=== PATIENT | female | born 1975 | race Hispanic/Latino ===

== ENCOUNTER → 2016-08-25 | Day surgery (SDC) | payer OTHER ==
[~2016-08-25] VITALS: Ht 152.4 cm; Wt 58.5 kg
[~2016-08-25] MED LIST: ACET1TAB12 PO; BECL8.7A6 INHALATION; CALC-952 PO; CHOL400T3 PO; DOXY100C2 PO; FLUT16SP NS; LEVO250T45 PO; OMEP20CA11 PO; ONDA8TAB10 PO; PANT40TA3 PO; RIZA10TA28 PO; ROB500 PO; Sodium Chloride LOK Flush 10 mL Syringe IV PRN; fentaNYL-PF 50 mCg/mL 2 mL Inj IVPUSH PRN
[2016-08-25 14:12] VITALS: BP 110/69; PULSE 66; RESP 16; O2SAT 99
[2016-08-25] MEDS: 0.9% Sodium Chloride 1,000 ML IV SCH ×2 (15:20→16:02)
[2016-08-25 16:05] VITALS: BP 119/63; PULSE 66; RESP 16; O2SAT 98
[2016-08-25 16:15] VITALS: BP 102/59; PULSE 61; RESP 16; O2SAT 98
[2016-08-25 16:25] VITALS: BP 97/60; PULSE 74; RESP 16; O2SAT 100
[2016-08-25 16:35] VITALS: BP 106/75; PULSE 67; RESP 16; O2SAT 100
--- NOTE | 2016-08-25 19:00 | ENDO ---
[address] [address] ENDOSCOPY PROCEDURE PATIENT: ANNE-MARIE URIAS : 1975 MR#: [id number] ADMIT: 08/25/2016 JOB ID: [id number] DATE: 08/25/2016 PRIMARY PROVIDER: Lacey Faulkner DO. PROCEDURE: Esophagogastroduodenoscopy with biopsies and culture. INDICATIONS: This is a 41-year-old female with chronic intermittent frequent epigastric pain and an element of weight loss of late with possible low-grade melena of uncertain etiology. She gets quite a bit of relief from Mylanta and is dependent on twice daily pantoprazole. Recalls being treated for Helicobacter pylori three separate times. Most recent biopsies of the stomach in 2013 and 2014 were negative for H. pylori. EQUIPMENT: GIF H 180 J. SEDATION: 1. 6 mg Versed. 2. 125 mcg fentanyl. COMPLICATIONS: None identified. PROCEDURE INFORMATION: After the risks and benefits were explained, written and verbal informed consent was obtained. The patient was brought into the endoscopy suite and placed into the left lateral decubitus position. Sedation was achieved using the above-stated medications with the addition of oxygen via nasal cannula. The scope was introduced into the mouth through the bite block, and advanced under direct visualization through the oropharynx, esophagus, stomach, and onto the second portion of the duodenum. The scope was slowly withdrawn to carefully examine the mucosa for any defects or lesions. Retroflexed views were accomplished in the stomach. The stomach was decompressed. The scope removed from the patient who tolerated the procedure well. FINDINGS: 1. Duodenum: The mucosa appeared normal from the bulb through to the second portion. 2. Stomach: The patient had some linear mild erosive features in the antrum, otherwise minimal gastropathy seen throughout. No outlet obstruction. No mass lesions. No large ulcers. Random gastric biopsies were taken for exclusion of Helicobacter or any other underlying histopathology. An extra set of biopsies x4 were taken for culture. These were sent down to Micro directly from the endoscopy suite in a dry, sterile specimen container. 3. Retroflexed views of the LES were unremarkable. 4. Esophagus: The squamocolumnar junction correlated with the top of the gastric folds. No acute erosive changes. No strictures. No mass lesions. The GE junction was at 35 cm from the incisors. ENDOSCOPIC DIAGNOSIS: Erosive gastropathy. RECOMMENDATIONS: 1. Await histopathology. 2. Await Microbiology for culture and sensitivity results if H. pylori is confirmed (this step was taken in the context of the patient reporting three prior treatments for H. pylori which did not take). 3. In the interim, the patient is encouraged to continue b.i.d. PPI and p.r.n. Mylanta until we have the above data.
--- NOTE | 2016-08-27 15:00 | PATH ---
SURGICAL PATHOLOGY Attending Physician:Yanelis Luong CASE STATUS: Signed Out PATIENT NAME: ANNE-MARIE URIAS PID: [id number] : 1975 DATE COLLECTED:08/25/2016 00:00 SPECIMEN: Gastric, Biopsy CLINICAL HISTORY: 1). GASTRIC BIOPSY FINAL DIAGNOSIS: 1.GASTRIC BIOPSY: GASTRIC BODY MUCOSA WITH NO DIAGNOSTIC ALTERATIONS. Negative for Helicobacter organisms. Negative for intestinal metaplasia. Negative for dysplasia and malignancy. ICD10 code R10.13 GROSS DESCRIPTION: The specimen is received in one formalin filled container labeled with the patient's name, sublabeled "gastric" and consists of a 0.3 x 0.3 x 0.3 CM portion of tissue which is entirely submitted in one cassette. 08/26/2016 DAC MICRO DESCRIPTION: See diagnosis. ICD-9 CODES: CPT CODES: 1: 76036 Electronically Signed Out Irma Shafer MD [facility] Pathology [facility] [address], [place] [address] Technical component performed at [facility], [address] [place] [address] Ave[address], [place], [address]
== END | disposition home or self-care (01) ==
LOC: END 01:04
PROVIDERS: ATTEND Internal Medicine Gastroenterology
DX: K31.9 Disease of stomach and duodenum, unspecified (principal); K21.9 Gastro-esophageal reflux disease without esophagitis; G43.109 Migraine with aura, not intractable, without status migrainosus; K59.09 Other constipation; R63.4 Abnormal weight loss
CPT/HCPCS: 43239; 87070; 87075; 87205; G0500; J2250; J3010; J7030

== ENCOUNTER 2016-09-07 12:08 | Emergency (ER) | payer OTHER ==
[~2016-09-07] VITALS: Ht 152.4 cm; Wt 58.6 kg
[~2016-09-07 12:08] MED LIST changes: -DOXY100C2 PO; -LEVO250T45 PO; -OMEP20CA11 PO; -ONDA8TAB10 PO; -ROB500 PO; -Sodium Chloride LOK Flush 10 mL Syringe IV PRN; -fentaNYL-PF 50 mCg/mL 2 mL Inj IVPUSH PRN
[2016-09-07 12:11] VITALS: BP 114/82; PULSE 88; RESP 16; O2SAT 100
[2016-09-07] MEDS ORDERED: ROB500 PO (12:15)
--- NOTE | 2016-09-07 12:24 | ED.REPORT ---
HPI-Abd Pain F 40 and Over Date of Service Sep 07, 2016 ED Provider: Daniele Moreno MD Lynne is a 41-year-old female with a chief complaint of epigastric abdominal pain. She reports a history of abdominal pain that has been increasing over the last year. This morning it was more severe and associated with 2 episodes of nonbloody vomiting. She describes the pain as intermittent, and cannot say what provokes or palliates it. She takes pantoprazole for her heartburn as well as Tylenol with Codeine. She reports having upper endoscopy approximately 2 weeks ago. Review of records reveals it is negative for H. pylori cancer and revealed erosive esophagitis. Patient denies hematochezia, melena, diarrhea, constipation, urinary symptoms, vaginal bleeding/discharge, fever. Patient reports a history of hysterectomy and cholecystectomy. Denies history of heart disease, hypertension, hyperlipidemia, diabetes. Nursing Notes Stated Complaint: STOMACH PAIN Chief Complaint: Female Abdominal Pain Nursing Notes Reviewed: Yes Allergies: Coded Allergies: Penicillins (Verified Allergy, Severe, HIVES/RASH, 09/07/16) amoxicillin (Verified Allergy, Unknown, 09/07/16) clavulanic acid (Verified Allergy, Unknown, 09/07/16) ketorolac (Verified Allergy, Unknown, 09/07/16) promethazine (Verified Adverse Reaction, Severe, Extrapyramidal Symptoms, 09/07/16) Dystonia prochlorperazine (Verified Adverse Reaction, Intermediate, Extrapyramidal Symptoms, 09/07/16) dystonia Uncoded Allergies: Clavulanate Potassium (Allergy, Severe, HIVES, RASH, 10/23/13) Scheduled Beclomethasone Dipropionate (Qvar) 8.7 Gm Aer.w.adap 2 PUFFS INHALATION BID Fluticasone Propionate (Fluticasone Propionate Nasal) 16 Gm [place].susp 1 SPRAY NS BID Ondansetron ODT (Ondansetron ODT) 8 Mg Tab.rapdis 8 MG PO TID Pantoprazole DR (Pantoprazole DR) 40 Mg Tablet.dr 40 MG PO BID Scheduled PRN Acetaminophen/Codeine 300-30mg (Tylenol/Codeine #3) 1 Each Tablet 1 TABLET PO Q4H PRN PRN Pain Methocarbamol (Methocarbamol) 500 Mg Tablet 1 TAB PO DAILY PRN PRN For Spasm Miscellaneous Medications Calcium Carbonate/Vitamin D3 (Calcium 500 mg Chewable Tablet) 1 Each Tab.chew 1 EACH PO Cholecalciferol (Vitamin D3) (Vitamin D3) 400 Unit Tab.chew Unknown Dose PO Rizatriptan ODT (Rizatriptan) 10 Mg Tablet 10 MG PO General Time Seen by MD: 12:17 Chief Complaint Abdominal pain Hx Obtained From: Patient Arrived By: Walk-in Sudden in Onset?: No Symptom Duration: Since onset Past Medical History Past Medical History Notes: has been tested and treated 3 times for H plyoric patient states she has not provided urine to determine if she has active disease Past Medical History EDMONDS for 3-4 years Depression Past Surgical History She had a "tummy tuck" done at [place] , gallbladder removed 2 years ago 2013 Endoscopy Reports: Appendectomy, Cholecystectomy, Hysterectomy Family History Liver cancer Reports: Cancer Smoking History Never Smoker Social History Alcohol Use: "Social" Drug Use: Denies drug use Other Social History: Local resident 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 HEENT: Denies congestion, headache, sore throat. Respiratory: Denies dyspnea, cough, shortness of breath, wheezing. Cardiovascular: Denies chest pain, palpitations. Gastrointestinal: Admits vomiting, abdominal pain. Denies diarrhea, melena, hematochezia Genitourinary: Denies frequency, urgency, dysuria, hematuria. Otherwise as noted in HPI. Complete sys rev & neg: except as marked. Physical Exam General: Well appearing, well developed, well nourished, moderate distress. Head: Atraumatic, normocephalic. Eyes: No scleral icterus or injection. No discharge. Vision grossly intact. ENT: Voice clear, hearing grossly intact. Respiratory: Regular rate and rhythm. Breath sounds present, clear to auscultation and equal bilaterally. No respiratory distress. No increased work of breathing, speaks in complete sentences. Cardiovascular: Regular rate and rhythm, without murmur, gallop or rub. No pedal edema. Gastrointestinal: Abdomen flat and mildly tender over the epigastrium without guarding or rebound. Bowel sounds normoactive. Skin: Warm and dry. Neurological: Grossly nonfocal. Psychological: Alert and oriented. Speech appropriate, linear and logical. Behavior appropriate. Vital Signs Vital Signs (First) Date Time Temp Pulse Resp B/P Pulse Ox O2 Delivery O2 Flow Rate FiO2 09/07/16 12:11 36.2 88 16 114/82 100 Room Air Initial VS: Reviewed Interpretation & Diagnostics Lab Results Interpretation Result Diagram: 09/07/16 1310 09/07/16 1310 Test 09/07/16 13:10 White Blood Count 10.3th/mm3 (3.8-10.1) Red Blood Count 4.40mil/mm3 (3.90-5.20) Hemoglobin 13.7g/dL (12.0-15.6) Hematocrit 39.9% (35.0-46.0) Mean Corpuscular Volume 90.7fL (81-100) Mean Corpuscular Hemoglobin 31.1pg (27.0-35.0) Mean Corpuscular Hemoglobin Concent 34.3% (32.0-37.0) Red Cell Distribution Width 12.0% (12.3-15.4) Platelet Count 184bil/L (150-400) Neutrophils (%) (Auto) 72.1% (40-74) Lymphocytes (%) (Auto) 20.9% (14-46) Monocytes (%) (Auto) 4.9% (4-12) Eosinophils (%) (Auto) 1.6% (0-5) Basophils (%) (Auto) 0.2% (0-3) Sodium Level 138mEq/L (134-144) Potassium Level 3.7mEq/L (3.5-5.2) Chloride Level 100mEq/L (97-108) Carbon Dioxide Level 23mmol/L (18-29) Blood Urea Nitrogen 13mg/dL (6-24) Creatinine 0.54mg/dL (0.57-1.00) Estimat Glomerular Filtration Rate 178mL/min (>59) Glucose Level 97mg/dL (60-99) Calcium Level 9.7mg/dL (8.5-10.1) Total Bilirubin 1.5mg/dL (0.0-1.2) Aspartate Amino Transf (AST/SGOT) 44U/L (0-50) Alanine Aminotransferase (ALT/SGPT) 25U/L (0-32) Alkaline Phosphatase 59U/L (25-150) Total Protein 7.4g/dL (6.4-8.4) Albumin 4.5g/dL (3.4-5.0) Lipase 45U/L (13-60) Hold Villagomez Top Tube Received (Received) Re-Eval/Medical Decision Med Decision/Clinical Course Lynne is an otherwise healthy 41-year-old female presents with chief complaint epigastric pain associated with 2 episodes of nonbloody vomiting this morning. She reports a two-year history of abdominal pain for which she takes pantoprazole daily as well as Maalox. States that this pain is similar to the pain she has been treated for previously. Reports having endoscopy done approximately 2 weeks ago but she does not know the results. Physical examination reveals only very mild epigastric tenderness. Reviewed endoscopy from Dr. Mehta from 08/25/2016 shows: normal duodenum, mild erosive features in the antrum otherwise minimal gastropathy. Findings are consistent with erosive gastropathy. Pathology report: Negative Helicobacter, metaplasia, and malignancy. Treated with GI cocktail, to minimal effect. CMP reveals slightly low creatinine and slightly elevated bilirubin at 1.5. Not thought to be clinically significant. LFTs otherwise normal. CBC reveals extremely slight leukocytosis at 10.3. Not thought to be clinically significant. At this point I believe this is most likely be an aggravation of her erosive gastritis. I do not think it is likely to be a bleeding ulcer, perforation, pancreatitis, cholecystitis, diverticulitis. Advised continuing PPI, Maalox, acetaminophen for pain. Provided prescription for ondansetron. Advised Primary care follow-up, provided emergency return precautions. Discussed findings with patient who understands and agrees with the plan. Source of Hx: Old records Re-Evaluation/Progress : Re-Evaluation/Progress Note: Patient's abdominal pain continues despite GI cocktail. She reports her pain reduced from 10/10 to 9/10 Counseled Regarding: Diagnosis, Lab results Discharge & Departure Primary Impression: Erosive gastritis Disposition: Home Discharge Condition All VS Reviewed: Yes Condition: Stable Patient Instructions: Gastritis (ED) Additional Instructions: Evaluation for abdominal pain in the emergency Department. History, physical and the results of your recent upper endoscopy consistent with erosive gastritis , which is a severe irritation of your stomach lining. There is no indication of an immediately dangerous cause of her pain such as a bleeding ulcer or a perforation. I believe you are stable and safe to be discharged home. Continue taking your pantoprazole as directed. Continue using Maalox when you are symptoms are worse than usual. I will write you a prescription for anti- nausea medication. Pain is best treated with up to 1000 mg of Tylenol every 6 hours. Please contact your primary care provider to arrange follow-up in the next few days. Return to emergency room for new or worsening symptoms including bloody/ tarry stool, vomiting blood, weakness, increasing pain. Referrals: Lacey Faulkner DO (PCP) EDSupervising Provider for APC: Daniele Moreno MD Attestation Portions of this note were transcribed by Coby Pompa. I, Dr. Moreno personally performed the history, physical exam and medical decision-making; I reviewed and confirmed the accuracy of the information in the transcribed note. Signed by: Marietta Thorne, 09/07/2016 at 1230. Attending Statement Attending attestation: I saw this patient in conjunction with Dalton Brantley PA-C. I was present for all black portions of the history taking and physical examination. I agree with the workup, evaluation, treatment and disposition. Daniele Moreno MD copies to: Lacey Faulkner Beck O MD Sep 07, 2016 12:24 Coby Pompa Sep 07, 2016 12:26 Dalton Brantley PA-C Sep 07, 2016 12:52
[2016-09-07] MEDS ORDERED: LidocaineVisc 2%:Antacid 1:1 10 mL Syringe PO ONE (12:25)
[2016-09-07] MEDS ORDERED: 0.9% Sodium Chloride 1,000 ML IV ONE (13:00)
[2016-09-07] MEDS ORDERED: Ondansetron 2 mg/mL 2 mL Inj IVPUSH ONE (13:00)
[2016-09-07 13:25] LABS: BASOPHILS % (AUTO) 0.2 % (0-3); EOSINOPHILS % (AUTO) 1.6 % (0-5); MONOCYTES % (AUTO) 4.9 % (4-12); Mean Corpuscular Hemoglobin 31.1 pg (27.0-35.0); Mean Corpuscular Volume 90.7 fL (81-100); NEUTROPHILS % (AUTO) 72.1 % (40-74); Platelet Count 184 bil/L (150-400)
[2016-09-07] MEDS ORDERED: ONDA8TAB10 PO (14:05)
[2016-09-07 14:22] VITALS: BP 118/78; PULSE 75; RESP 18; O2SAT 100
== END 2016-09-07 14:05 | disposition home or self-care (01) ==
LOC: SED 12:08
DX: K29.60 Other gastritis without bleeding (principal); Z90.49 Acquired absence of other specified parts of digestive tract; Z98.890 Other specified postprocedural states; Z88.0 Allergy status to penicillin; Z88.1 Allergy status to other antibiotic agents; Z88.8 Allergy status to other drugs, medicaments and biological substances
CPT/HCPCS: 36415; 80053; 83690; 85025; 96361; 96374; 99284; J2405; J7030

== ENCOUNTER 2017-02-17 18:15 | Emergency (ER) | payer OTHER ==
[~2017-02-17] VITALS: Ht 152.4 cm; Wt 61.8 kg
[~2017-02-17 18:15] MED LIST changes: +ONDA8TAB10 PO; +ROB500 PO
[2017-02-17 18:16] VITALS: BP 132/82; PULSE 64; RESP 16; O2SAT 100
[2017-02-17] MEDS ORDERED: Ondansetron 2 mg/mL 2 mL Inj IVPUSH PRN (18:30)
--- NOTE | 2017-02-17 18:30 | ED.REPORT ---
HPI-Abd Pain F 40 and Over Date of Service Feb 17, 2017 ED Provider: Tyler Calderon MD Pt is a 41 y/o female with a history of GERD and acid reflux who presents to the ED c/o LLQ abdominal pain that radiates to her back onset 0100 this morning. Additional symptoms include melena. She denies nausea, vomiting, fevers , dysuria, diarrhea, or hematochezia. Nursing Notes Stated Complaint: ABDOMINAL PAIN Chief Complaint: Female Abdominal Pain Nursing Notes Reviewed: Yes Allergies: Coded Allergies: Penicillins (Verified Allergy, Severe, HIVES/RASH, 09/07/16) amoxicillin (Verified Allergy, Unknown, 09/07/16) clavulanic acid (Verified Allergy, Unknown, 09/07/16) ketorolac (Verified Allergy, Unknown, 09/07/16) promethazine (Verified Adverse Reaction, Severe, Extrapyramidal Symptoms, 09/07/16) Dystonia prochlorperazine (Verified Adverse Reaction, Intermediate, Extrapyramidal Symptoms, 09/07/16) dystonia Uncoded Allergies: Clavulanate Potassium (Allergy, Severe, HIVES, RASH, 10/23/13) Scheduled Beclomethasone Dipropionate (Qvar) 8.7 Gm Aer.w.adap 2 PUFFS INHALATION BID Fluticasone Propionate (Fluticasone Propionate Nasal) 16 Gm [place].susp 1 SPRAY NS BID Ondansetron ODT (Ondansetron ODT) 8 Mg Tab.rapdis 8 MG PO TID Pantoprazole DR (Pantoprazole DR) 40 Mg Tablet.dr 40 MG PO BID Scheduled PRN Acetaminophen/Codeine 300-30mg (Tylenol/Codeine #3) 1 Each Tablet 1 TABLET PO Q4H PRN PRN Pain Methocarbamol (Methocarbamol) 500 Mg Tablet 1 TAB PO DAILY PRN PRN For Spasm Miscellaneous Medications Calcium Carbonate/Vitamin D3 (Calcium 500 mg Chewable Tablet) 1 Each Tab.chew 1 EACH PO Cholecalciferol (Vitamin D3) (Vitamin D3) 400 Unit Tab.chew Unknown Dose PO Rizatriptan ODT (Rizatriptan) 10 Mg Tablet 10 MG PO General Time Seen by MD: 18:30 Chief Complaint Abdominal pain Hx Obtained From: Patient Arrived By: Walk-in Sudden in Onset?: No Onset Occurred: 9 - 12 hours ago Symptom Duration: Constant Location: : LLQ Quality: Painful Radiation: : Back Severity: Current: Mild Severity: Maximum: Moderate Recent Healthcare: No recent doctor visit, No recent hospitalization Similar Sx Previous: No Risk Factors )( AAA Risk Stratification Risk factors reviewed Past Medical History Past Medical History Notes: has been tested and treated 3 times for H plyoric patient states she has not provided urine to determine if she has active disease Past Medical History EDMONDS for 3-4 years Depression Reports: Asthma, GERD Past Surgical History She had a "tummy tuck" done at [place] , gallbladder removed 2 years ago 2013 Endoscopy Reports: Appendectomy, Cholecystectomy, Hysterectomy Family History Liver cancer Reports: Cancer Smoking History Never Smoker Social History Alcohol Use: "Social" Drug Use: Denies drug use Other Social History: Local resident 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 Physical Exam Vital Signs Vital Signs (First) Date Time Temp Pulse Resp B/P Pulse Ox O2 Delivery O2 Flow Rate FiO2 02/17/17 18:16 36.8 64 16 132/82 100 Room Air Initial VS: Reviewed Neck: Supple, Full range of motion Extremities: Vascular intact, Neuro intact, No swelling, No tenderness Skin: Warm, Dry, No cyanosis Neurologic: Alert, Oriented, Nonfocal Psychiatric: Mood/affect normal, Behavior normal, Normal thought content General/Constitutional: Awake, Alert Respiratory / Chest: Atraumatic, Breath sounds NL, Breath sounds = bilat, No respiratory distress Cardiovascular: Heart rate NL, Regular rhythm, Heart sounds NL, No gallop Abdomen: Soft, No guarding, No rebound Tenderness/Guarding/Rebound: Positive: Tender LLQ... (Mild) Back: Inspection NL, Full range of motion, No CVA tenderness Rectum / Perineum: pollution control chemist passed, No gross blood [place] negative Interpretation & Diagnostics Lab Results Interpretation Result Diagram: 02/17/17 1844 02/17/17 1844 Test 02/17/17 18:44 02/17/17 18:49 02/17/17 19:43 02/17/17 21:42 White Blood Count 6.9th/mm3 (3.8-10.1) Red Blood Count 3.76mil/mm3 (3.90-5.20) Hemoglobin 11.9g/dL (12.0-15.6) Hematocrit 35.2% (35.0-46.0) Mean Corpuscular Volume 93.6fL (81-100) Mean Corpuscular Hemoglobin 31.6pg (27.0-35.0) Mean Corpuscular Hemoglobin Concent 33.8% (32.0-37.0) Red Cell Distribution Width 12.3% (12.3-15.4) Platelet Count 169bil/L (150-400) Neutrophils (%) (Auto) 54.7% (40-74) Lymphocytes (%) (Auto) 31.3% (14-46) Monocytes (%) (Auto) 9.4% (4-12) Eosinophils (%) (Auto) 3.9% (0-5) Basophils (%) (Auto) 0.1% (0-3) Sodium Level 139mEq/L (134-144) Potassium Level 3.6mEq/L (3.5-5.2) Chloride Level 102mEq/L (97-108) Carbon Dioxide Level 25mmol/L (18-29) Blood Urea Nitrogen 16mg/dL (6-24) Creatinine 0.54mg/dL (0.57-1.00) Estimat Glomerular Filtration Rate 178mL/min (>59) Glucose Level 102mg/dL (60-99) Calcium Level 9.1mg/dL (8.5-10.1) Magnesium Level 1.9mg/dL (1.6-2.6) Total Bilirubin 0.7mg/dL (0.0-1.2) Aspartate Amino Transf (AST/SGOT) 29U/L (0-50) Alanine Aminotransferase (ALT/SGPT) 30U/L (0-32) Alkaline Phosphatase 56U/L (25-150) Total Protein 6.9g/dL (6.4-8.4) Albumin 3.9g/dL (3.4-5.0) Lipase 65U/L (13-60) Hold Villagomez Top Tube Received (Received) Urine Color Yellow (YELLOW) Urine Appearance Clear (CLEAR,HAZY) Urine pH 7.0 (5.0-8.0) Urine Specific [place] 1.015 (1.003-1.035) Urine Protein Negativemg/dL (NEG,TRACE) Urine Glucose (UA) Negativemg/dL (NEGATIVE) Urine Ketones Negativemg/dL (NEGATIVE) Urine Occult Blood Trace (NEGATIVE) Urine Nitrite Negative (NEGATIVE) Urine Bilirubin Negative (NEGATIVE) Urine Urobilinogen Normalmg/dL (NORMAL) Urine Leukocyte Esterase Negative (NEGATIVE) Urine RBC 0-2/hpf (0-2) Urine WBC 0-5/hpf (0-5) Urine Epithelial Cells Occasional/hpf (NONE-MOD) Urine Crystals Amorphous phosphates Urine Bacteria Few/hpf (NONE-FEW) Urine Hyaline Casts None/lpf (NONE) Urine Granular Casts None seen (NONE SEEN) Urine Waxy Casts None seen (NONE SEEN) Urine Red Blood Cell Casts None seen (NONE SEEN) Urine White Blood Cell Casts None seen (NONE SEEN) Urine Mucus Present (None Seen) Urine Trichomonas None seen (NONE SEEN) Urine Yeast None (NONE SEEN) Urinalysis Comment None Urine Culture Reflexed Not indicated Hold Blue Top Tube Received (Received) CT Abd / Pelvis Interpretation IMPRESSION: Prior cholecystectomy, no sign of intestinal obstruction or perforation. A source of current symptoms is not found. Dictated by: Carlitos Shaffer M.D. on 02/17/2017 at 20:58 Approved by: Carlitos Shaffer M.D. on 02/17/2017 at 20:59 Study type: Abdominal CT IV contrast Interpretation / Wet Read by: Interpret - Radiologist Re-Eval/Medical Decision Med Decision/Clinical Course 41-year-old female history of hysterectomy presenting with left lower quadrant pain. She has mild left lower quadrant tenderness. Vital signs stable. Labs are unremarkable. CT abdomen and pelvis no acute pathology. Urine is negative for infection. Her pain resolved. Unclear etiology. She will follow-up with her primary doctor tomorrow. Return precautions given. Source of Hx: Old records Re-Evaluation/Progress : Time of Eval: 21:14 Patient Status: Condition improved Re-Evaluation/Progress Note: Pt rechecked. Performed rectal exam. Pt says her pain has resolved. Discussed plan for discharge. Pt agrees and understands plan. Gave all RTER and follow-up directions. All questions addresssed at this time. Counseled Regarding: Diagnosis, Lab results, Need for follow-up, When/why to return to ED Discharge & Departure Primary Impression: Abdominal pain Abdominal location: left lower quadrant Qualified Code: R10.32 - Left lower quadrant pain Disposition: Home Discharge Condition All VS Reviewed: Yes Condition: Stable Patient Instructions: Acute Abdominal Pain (ED) Additional Instructions: Your labs are normal and your CT scan did not show any cause for concern. However given these symptoms, I believe you are able to go home. Take Tylenol for your pain as needed. Please call in the morning to schedule a follow-up appointment with your primary care doctor in 2-3 days for a recheck. Please return to the emergency department if you experience any new or worsening symptoms, including fever, nausea, vomiting, diarrhea, or blood in your stool. Referrals: Anibal Rogers DO (PCP) Scribe Attestation Portions of this note were transcribed by Lala Harris. I, Dr. Calderon, personally performed the history, physical exam and medical decision-making; I reviewed and confirmed the accuracy of the information in the transcribed note. copies to: Anibal Rogers Ben M MD Feb 17, 2017 18:30 Lala Harris Feb 17, 2017 19:09
[2017-02-17 19:02] LABS: BASOPHILS % (AUTO) 0.1 % (0-3); EOSINOPHILS % (AUTO) 3.9 % (0-5); MONOCYTES % (AUTO) 9.4 % (4-12); Mean Corpuscular Hemoglobin 31.6 pg (27.0-35.0); Mean Corpuscular Volume 93.6 fL (81-100); NEUTROPHILS % (AUTO) 54.7 % (40-74); Platelet Count 169 bil/L (150-400)
[2017-02-17 19:14] LABS: Magnesium 1.9 mg/dL (1.6-2.6)
[2017-02-17 20:04] LABS: APPEARANCE,URINE CLEAR (CLEAR,HAZY); COLOR,URINE YELLOW (YELLOW); OCCULT BLOOD,URINE TRACE (NEGATIVE); UROBILINOGEN,URINE NORMAL (NORMAL)
--- NOTE | 2017-02-17 21:00 | DRSVH ---
PROCEDURE: CT ABDOMEN AND PELVIS WITH CONTRAST ([id number]) INDICATIONS: lower abd pain TECHNIQUE: After the administration of intravenous contrast, 5 mm thick sections acquired from the diaphragm to the symphysis. 5 mm coronal and sagittal reformats were acquired. For radiation dose reduction, the following was used: automated exposure control, adjustment of mA and/or kV according to patient bárbara e. COMPARISON: [facility], CT, ABD/PELVIS W/CON (PN), 09/03/2014, 1:55. FINDINGS: Image quality: Excellent. ABDOMEN: Lung bases: Lung bases are clear. Heart size is normal. Solid organs: Liver and spleen are normal in size and enhancement. Gallbladder has been previously resected. Biliary system is non dilated. Pancreas enhances normally. No adrenal nodules. Kidneys demonstrate normal size and enhancement, without hydronephrosis. Peritoneum and bowel: Bowel loops demonstrate normal wall thickness and caliber. No free fluid or a ir. Nodes and vessels: No retroperitoneal or mesenteric adenopathy by size criteria. Aorta and inferior vena cava are normal in size. Miscellaneous: No ventral hernias. PELVIS: Genitourinary: Bladder wall thickness is normal. Miscellaneous: No inguinal hernias or adenopathy. Bones: No suspicious bony lesions. No vertebral body compression fractures. IMPRESSION: Prior cholecystectomy, no sign of intestinal obstruction or perforation. A source of cu rrent symptoms is not found. Dictated by: Carlitos Shaffer M.D. on 02/17/2017 at 20:58 Approved by: Carlitos Shaffer M.D. on 02/17/2017 at 20:59
[2017-02-17 21:36] VITALS: BP 120/82; PULSE 62; RESP 16; O2SAT 100
[2017-02-17 21:40] VITALS: BP 120/82; PULSE 62; RESP 16; O2SAT 100
== END 2017-02-17 21:41 | disposition home or self-care (01) ==
LOC: SED 18:15
DX: R10.32 Left lower quadrant pain (principal); J44.9 Chronic obstructive pulmonary disease, unspecified; F32.9 Major depressive disorder, single episode, unspecified; Z90.49 Acquired absence of other specified parts of digestive tract; Z88.0 Allergy status to penicillin; Z88.1 Allergy status to other antibiotic agents; Z88.6 Allergy status to analgesic agent; Z88.8 Allergy status to other drugs, medicaments and biological substances
CPT/HCPCS: 36415; 74177; 80053; 81000; 81025; 83690; 83735; 85025; 99284; Q9967